=== PATIENT | female | born 1995 | race Caucasian/White ===

== ENCOUNTER → 2017-08-27 | Outpatient (REF) | payer BC, OTHER | LOC: M LAB REF 11:14 | DX: J02.9 Acute pharyngitis, unspecified (principal) | CPT/HCPCS: 87430 ==

== ENCOUNTER → 2025-04-16 | Outpatient (CLI) | payer MEDICAID, OTHER ==
[2025-04-16 13:17] LABS: PLATELET COUNT, AUTOMATED 217 10^3/uL (150-450)
[2025-04-16 13:53] LABS: HIV 1&2 SCREEN NEGATIVE (NEGATIVE)
[2025-04-16 14:01] LABS: HEPATITIS C VIRUS ABY INDEX < 0.02 INDEX (<0.8)
[2025-04-16 14:52] LABS: Trichomonas vaginalis (AMP) NOT DETECTED (NEGATIVE)
[2025-04-16 15:16] LABS: GC DNA AMPLIFICATION NEGATIVE (NEGATIVE)
== END ==
LOC: M PLALAB 10:37
PROVIDERS: ATTEND Advanced Practice Midwife
DX: Z34.02 Encounter for supervision of normal first pregnancy, second trimester (principal)